=== PATIENT | female | born 1995 | race Caucasian/White ===

== ENCOUNTER 2017-10-14 14:45 | Inpatient (IN) ==
[2017-10-14 15:23] LABS: Basophils # 0.1 K/mcL (0.0-0.2); Basophils % 0.4 %; Eosinophils # 0.4 K/mcL (0.0-0.6); Eosinophils % 3.1 %; Hemoglobin 11.4 g/dL (11.5-15.4); Immature Granulocytes % 0.5 % (0-4); Mean Corpuscular HGB Conc 33.5 g/dL (31.6-35.5); Mean Corpuscular Hemoglobin 29.2 pg (28.0-33.3); Mean Corpuscular Volume 87.2 fL (83.0-100.0); Mean Platelet Volume 13.8 fL (9.4-12.4); Monocytes # 1.4 K/mcL (0.0-1.3); Monocytes % 12.2 %; Neutrophils # 7.8 K/mcL (1.6-8.9); Platelet Count 176 K/mcL (140-400); Red Cell Distribution Width 13.2 % (11.5-14.5); Segmented Neutrophils % 66.8 %
[2017-10-14 15:34] LABS: Amphetamine Screen,Urine Negative ng/mL (Cutoff=1000); Barbiturate Screen,Urine Negative ng/mL (Cutoff=200); Benzodiazepines Screen,Urine Negative ng/mL (Cutoff=200); Cannabinoid Screen,Urine Negative ng/mL (Cutoff = 50); Cocaine Screen,Urine Negative ng/mL (Cutoff= 300); Opiate Screen,Urine Negative ng/mL (Cutoff=300); Phencyclidine Screen,Urine Negative ng/mL (Cutoff=25); Protein/Creatinine Ratio,Urine 0.93 mg/mg (0.00-0.20)
[2017-10-14 15:42] LABS: Alanine Aminotransferase 7 Units/L (7-52); Aspartate Amino Transferase 17 Units/L (13-39); BUN/Creatinine Ratio 15 (6-26); Blood Urea Nitrogen 10 mg/dL (6-20); Lactate Dehydrogenase 221 Units/L (140-271); Uric Acid 6.4 mg/dL (2.3-7.6); eGFR For Non-African Americans > 60 (> 60)
[2017-10-14] MEDS ORDERED: *HR* HYDROmorphone (PF) 1 MG/ML SYRINGE IVP PRN (17:10)
[2017-10-14] MEDS ORDERED: *HR* Promethazine 25 MG/ML VIAL IVP PRN (17:10)
[2017-10-14] MEDS ORDERED: Acetaminophen IV 1,000 MG/100 ML INFUS..BTL IVPB ONE (17:10)
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
[2017-10-14] MEDS ORDERED: CeFAZolin Premix DUPLEX 2,000 MG/50 ML BAG IVPB ONE (17:26)
[2017-10-14] MEDS ORDERED: Metoclopramide 10 MG/2 ML VIAL IVP ONE (17:26)
[2017-10-14] MEDS ORDERED: Famotidine 20 MG/2 ML VIAL IVP ONE (17:26)
[2017-10-14] MEDS ORDERED: Oxytocin 20 units/ LR 1000 mL 20 UNIT/1,000 ML BAG IVC ONE ×2 (17:26→22:09)
[2017-10-14] MEDS ORDERED: Ringers Solution, Lactated 1,000 ML IVC ONE (17:26)
[2017-10-14] MEDS ORDERED: MetroNIDAZOLE 500 MG/100 ML 500 MG/100 ML BAG IVPB ONE (17:28)
[2017-10-14] MEDS ORDERED: Ringers Solution, Lactated 1,000 ML ONE ×2 (17:29→18:54)
[2017-10-14] MEDS ORDERED: Ringers Solution, Lactated 1,000 ML IVC SCH (17:30)
[2017-10-14] MEDS ORDERED: *HR* Oxytocin 10 UNIT/ML VIAL IM ONE (18:53)
[2017-10-14] MEDS ORDERED: EPHEDrine 50 MG/ML VIAL ONE (18:53)
[2017-10-14] MEDS ORDERED: *HR* Morphine Sulfate/PF 10 MG/10 ML AMPUL ONE (18:57)
[2017-10-14] MEDS ORDERED: *HR* FentaNYL (PF) 100 MCG/2 ML VIAL ONE ×2 (18:57→20:57)
[2017-10-14] MEDS ORDERED: cefOXitin 2,000 MG in Water for inj. (sterile) 20 ML 20 ML IVP ONE ×2 (19:18→20:00)
--- NOTE | 2017-10-14 19:31 | History & Physical Report ---
Date of Encounter: 10/14/17 Time of Encounter: 19:29 24 Hour HP Update - Instructions Instructions: If the History and Physical is less than 30 days old and was completed prior to A.M. admission and or procedure and has NOT been updated on calendar day of procedure please complete this update prior to performing procedure. - Update Patient reports changes in Medical Condition: Yes Changes in examination, assessment, or condition: No Changes in Medication: No Preop tests/diagnostics Reviewed: Yes Surgery Remains Indicated: Yes Consent for Planned Operative Procedure(s) Verified: Yes Review of Patient reveals the following changes:: Preeclampsia by labor and delivery evaluation with elevated protein creatinine ratio. Patient had questionable rupture of membranes. Speculum exam revealed no pooling. Cervical exam was 2/70/-1, breech presenting - Pre-Operative Checklist Preoperative Checklist Indicated: Yes Prophylactic Antibiotic Ordered: Yes Home Medications Include Beta Jovani: No Beta Jovani Taken Today (Day of Surgery): No Beta Jovani Taken Yesterday (Day Prior to Surgery): No Is VTE Prophylaxis Indicated?: Yes
[2017-10-14] MEDS ORDERED: Lidocaine -MPF 2% 5 ML VIAL ONE ×2 (20:07→21:29)
[2017-10-14] MEDS ORDERED: Propofol 500 MG/50 ML INFUS..BTL ONE (20:43)
[2017-10-14] MEDS ORDERED: *HR* Midazolam HCl 2 MG/2 ML VIAL ONE (20:58)
--- NOTE | 2017-10-14 22:00 | OB/GYN Procedure Note ---
Section - Date of procedure: 10/14/17 Preop diagnosis: breech, other (Twins, preeclampsia) Post-op diagnosis: same Procedure: section, primary low transverse Surgeon: Fanny Acharya Blood Loss: 600 Was there an administrative assistant data entry present: No Tire Builder Heavy Service: Dennis Randolph Anesthesia Type: General (Failed spinal) section complications: uterine atony Disposition: L&D Recovery Room Specimens: Placenta, Cord segment - (s) Infant A Infant Delivery Date: 10/14/17 Delivery Time: 20:52 Presentation: asif breech Route of delivery: other Gender: Female Viability: Viable Pounds: 5 Ounces: 10 at 1 minute: 7 at 5 minutes: 9 Placenta: spontaneous Cord: nuchal cord, 3 umbilical vessels, nuchal reduced Infant B Delivery Date: 10/14/17 Delivery Time: 20:53 Presentation: vertex (Converted from transverse) Route of delivery: other Gender: Male Viability: Viable Pounds: 5 Ounces: 2 at 1 minute: 7 at 5 minutes: 8 Placenta: spontaneous Cord: nuchal cord, 3 umbilical vessels, nuchal reduced - Narrative Narrative: The patient was taken to the operating room and given spinal anesthesia. Timeout was completed after the patient was prepped and draped. Anesthesia was tested with Allis clamps and confirmed. A Pfannenstiel skin incision was then made with the scalpel. The patient then reported discomfort with the incision. The case was then halted for another 15 minutes for a total of 28 minutes in which the patient did not achieve adequate anesthesia and she was given a general anesthesia. The incision was then extended laterally and sharply dissected down to the fascia. The fascia was then incised in the midline and extended bluntly and sharply bilaterally. 2 straight [place] clamps are placed on the inferior fascial edge and the fascia was bluntly and sharply dissected away from rectus muscles, this was repeated superiorly. The rectus muscles were bluntly and sharply bissected. Peritoneum was bluntly entered and extended bluntly superiorly and inferiorly. A bladder blade was placed to protect the bladder. The Vesicouterine peritoneum was incised with Metzenbaum scissors and extended laterally then the bladder flap was reflected inferiorly and the bladder blade was replaced to protect the bladder. A low transverse incision was then made in the lower uterine segment down to the amnion. This was then bluntly extended laterally. The amnion was then bluntly entered with an Allis clamp, clear fluid was seen, and the , baby A, was delivered in asif breech presentation. The was suctioned on the operating field. After cord clamping, the infant was handed to the nursery care team. A cord segment was obtained. Attention was then placed for baby B, which was in vertex presentation. The amnion was entered with an Allis clamp. Clear fluid was again seen. This was delivered in vertex presentation and suctioned on the operating field. The cord was clamped and cut and handed to finishing care team. A cord segment was obtained. Cord blood was obtained. This umbilical cord was doubly clamped with 2 umbilical plastic clamps. Three- vessel cord was confirmed. IV Pitocin was started. The placenta was delivered spontaneous and intact with trailing membranes. The uterine Cavity was digitally inspected and noted to be clear and then was wiped clean with a moist lap sponge. Tubes and ovaries were inspected and found to be grossly normal. There was uterine atony which responded to IV Pitocin and vigorous massage. The cervix was dilated with a ring forcep which was then discarded off the field. Ring clamps were placed on the edge of the uterine incision and the uterine incision was closed using 0 Vicryl suture in a running locking fashion. A second imbricating layer completed the uterine closure. Good hemostasis was achieved. The pelvic cavity was copiously irrigated with sterile water and good hemostasis was again noted. Peritoneal edges and rectus muscles were inspected and good hemostasis was achieved. The fascia was then closed using an 0 PDS loop in a running nonlocking fashion. Subcutaneous tissue was irrigated with sterile water good hemostasis was achieved. The skin was then closed with 4-0 Monocryl in a subcuticular fashion. Dermabond and mesh was used to reinforce the skin incision. Chery was noted to be draining clear yellow urine at the end of the procedure. All sponge and instrument counts were correct at the end of the procedure
--- NOTE | 2017-10-14 22:57 | Anesthesia Evaluation Post Op ---
Date of Encounter: 10/14/17 Time of Encounter: 22:56 - Vital Signs Vital Signs: vss - Lungs Lungs: Clear Ascult./Percussion - Airway Airway: Non-obstructed - Mental Status Mental Status: Alert & Oriented, Answers Appropriately - Pain Pain Scale used: Galvin-Diego (Faces) (tolerable) - Nausea Vomiting Nausea Vomiting: Not Present - Hydration Hydration: Chery catheter - Discharge PostOp Status: Transfer Patient to floor
[2017-10-15] MEDS: Oxytocin 20 units/ LR 1000 mL 20 UNIT/1,000 ML BAG IVC SCH ×2 (00:01→03:25)
[2017-10-15] MEDS ORDERED: Simethicone 80 MG TAB.CHEW PO PRN (00:44)
[2017-10-15] MEDS ORDERED: OXYCODONE Oral CONC 10 MG/0.5 ML ORAL.SYG SL PRN (00:44)
[2017-10-15] MEDS ORDERED: Ondansetron 4 MG/2 ML VIAL IVP PRN (00:44)
[2017-10-15] MEDS ORDERED: Sennosides 8.6 MG TABLET PO PRN (00:44)
[2017-10-15] MEDS: Ibuprofen 600 MG TABLET PO SCH ×4 (03:24→21:27)
[2017-10-15] MEDS ORDERED: Acetaminophen IV 1,000 MG/100 ML INFUS..BTL IVPB ONE ×2 (06:00→15:00)
[2017-10-15] MEDS ORDERED: *HR* Nalbuphine 10 MG/ML AMPUL IV PRN (06:54)
[2017-10-15] MEDS: Prenatal Vit/FA 1 EACH TABLET PO SCH (08:48)
--- NOTE | 2017-10-15 09:54 | OB/GYN Progress Note ---
Date of Encounter: 10/15/17 Time of Encounter: 09:52 - Assessment and Plan (1) Status post Current Visit: Yes Status: Acute Patient doing well after Obtain PIH labs Continue current management plan. Anticipate discharge home tomorrow (2) Twin delivery by Current Visit: Yes Status: Acute Subjective - Subjective Principal diagnosis: Interval history: Patient reports doing well after for twin gestation. States that both neonates are latching well. Reports being able to eat, has not passed gas yet. Pateint had byrnes catheter removed this morning and has no urinated on her own yet. Reports no nausea or vomiting, no drainage from incision site. Reports that swelling in her lower extremities from yesterday has improved significantly. Denies any headaches, blurry vision, fever. Patient reports: appetite normal, pain well controlled, no nauseated [place]: doing well Objective - Vital Signs Latest vital signs: Vital Signs Temp Pulse Resp BP Pulse Ox 10/15/17 03:30 97.9 F 69 16 132/84 97 10/15/17 02:30 98.0 F 68 16 130/81 97 10/15/17 01:30 98.5 F 72 16 137/68 97 10/15/17 01:00 98.1 F 78 16 117/69 96 10/15/17 00:30 98.6 F 79 16 129/76 97 Intake and Output 10/14/17 10/15/17 10/15/17 23:59 07:59 15:59 Intake Total 1000 / 1000 500 / 500 Output Total 600 / 600 1100 / 1100 1200 / 1200 Balance -600 / -600 -100 / -100 -700 / -700 Intake: IV Fluids 1000 / 1000 Pitocin 20 unit In 1,000 ml @ 1000 / 1000 125 mls/hr IVC .Q8H MARIO Rx#: [id number] Free Water 500 / 500 Output: Estimated Blood Loss 600 / 600 Catheter 1100 / 1100 1200 / 1200 Other: Stool Characteristics Normal for Patient Weight 75.75 kg 71.2 kg Patient Weight 10/15/17 23:59 Weight 71.2 kg - Exam Lungs: bilateral: normal Chest: Normal S1, Normal S2 Extremities: Present: normal. Absent: edema Abdomen: Present: soft Incision: Present: dressed Uterus: Present: firm. Absent: tenderness - Labs Labs: Laboratory Results - last 24 hr 10/14/17 10/14/17 10/14/17 15:10 15:10 15:10 WBC 11.8 H RBC 3.90 Hgb 11.4 L Hct 34.0 L MCV 87.2 MCH 29.2 MCHC 33.5 RDW 13.2 Plt Count 176 MPV 13.8 H Immature Gran % 0.5 Seg Neutrophils % 66.8 Lymphocytes % 17.0 Monocytes % 12.2 Eosinophils % 3.1 Basophils % 0.4 Neutrophils # 7.8 Lymphocytes # 2.0 Monocytes # 1.4 H Eosinophils # 0.4 Basophils # 0.1 BUN Creatinine Est GFR ( Amer) Est GFR (Non-Af Amer) BUN/Creatinine Ratio Uric Acid AST ALT Lactate Dehydrogenase Urine Creatinine 193 Protein/Creatinin Ratio 0.93 H Urine Total Protein 179 H Urine Opiates Screen Negative Ur Barbiturates Screen Negative Ur Phencyclidine Scrn Negative Ur Amphetamines Screen Negative U Benzodiazepines Scrn Negative Urine Cocaine Screen Negative U Marijuana (THC) Screen Negative Ur Drug Screen Interp See Below 10/14/17 15:10 WBC RBC Hgb Hct MCV MCH MCHC RDW Plt Count MPV Immature Gran % Seg Neutrophils % Lymphocytes % Monocytes % Eosinophils % Basophils % Neutrophils # Lymphocytes # Monocytes # Eosinophils # Basophils # BUN 10 Creatinine 0.68 Est GFR ( Amer) > 60 Est GFR (Non-Af Amer) > 60 BUN/Creatinine Ratio 15 Uric Acid 6.4 AST 17 ALT 7 Lactate Dehydrogenase 221 Urine Creatinine Protein/Creatinin Ratio Urine Total Protein Urine Opiates Screen Ur Barbiturates Screen Ur Phencyclidine Scrn Ur Amphetamines Screen U Benzodiazepines Scrn Urine Cocaine Screen U Marijuana (THC) Screen Ur Drug Screen Interp
[2017-10-15 10:30] LABS: Basophils % 0.2 %; Eosinophils % 0.1 %; Hematocrit 28.6 % (35.3-44.9); Immature Granulocytes % 0.6 % (0-4); Lymphocytes # 1.4 K/mcL (0.6-4.6); Lymphocytes % 7.8 %; Mean Corpuscular HGB Conc 32.9 g/dL (31.6-35.5); Mean Corpuscular Hemoglobin 29.2 pg (28.0-33.3); Mean Corpuscular Volume 88.8 fL (83.0-100.0); Mean Platelet Volume 14.1 fL (9.4-12.4); Monocytes # 2.5 K/mcL (0.0-1.3); Monocytes % 14.1 %; Neutrophils # 13.5 K/mcL (1.6-8.9); Platelet Count 135 K/mcL (140-400); Red Blood Count 3.22 M/mcL (3.82-4.97); Red Cell Distribution Width 12.8 % (11.5-14.5); Segmented Neutrophils % 77.2 %
[2017-10-15 10:33] LABS: Hemoglobin 9.4 g/dL (11.5-15.4)
[2017-10-15 10:45] LABS: Alanine Aminotransferase 10 Units/L (7-52); Aspartate Amino Transferase 37 Units/L (13-39); BUN/Creatinine Ratio 12 (6-26); Blood Urea Nitrogen 9 mg/dL (6-20); Lactate Dehydrogenase 250 Units/L (140-271); Uric Acid 5.9 mg/dL (2.3-7.6); eGFR For Non-African Americans > 60 (> 60)
[2017-10-15] MEDS: *HR* OxyCODONE/APAP 5/325 TABLET PO PRN ×2 (17:09→21:27)
[2017-10-16] MEDS: *HR* OxyCODONE/APAP 5/325 TABLET PO PRN ×5 (02:10→23:11)
[2017-10-16] MEDS: Ibuprofen 600 MG TABLET PO SCH ×3 (06:06→23:10)
[2017-10-16 06:55] LABS: Basophils # 0.1 K/mcL (0.0-0.2); Basophils % 0.4 %; Eosinophils # 0.3 K/mcL (0.0-0.6); Eosinophils % 2.1 %; Hematocrit 30.9 % (35.3-44.9); Hemoglobin 10.1 g/dL (11.5-15.4); Immature Granulocytes % 0.6 % (0-4); Lymphocytes # 2.5 K/mcL (0.6-4.6); Lymphocytes % 15.3 %; Mean Corpuscular HGB Conc 32.7 g/dL (31.6-35.5); Mean Corpuscular Hemoglobin 29.1 pg (28.0-33.3); Mean Platelet Volume 13.8 fL (9.4-12.4); Monocytes # 1.8 K/mcL (0.0-1.3); Monocytes % 11.3 %; Neutrophils # 11.3 K/mcL (1.6-8.9); Platelet Count 146 K/mcL (140-400); Red Blood Count 3.47 M/mcL (3.82-4.97); Red Cell Distribution Width 13.2 % (11.5-14.5); Segmented Neutrophils % 70.3 %
[2017-10-16 07:11] LABS: Alanine Aminotransferase 11 Units/L (7-52); Aspartate Amino Transferase 31 Units/L (13-39); BUN/Creatinine Ratio 15 (6-26); Blood Urea Nitrogen 10 mg/dL (6-20); Lactate Dehydrogenase 243 Units/L (140-271); Uric Acid 5.6 mg/dL (2.3-7.6); eGFR For Non-African Americans > 60 (> 60)
[2017-10-16] MEDS: Prenatal Vit/FA 1 EACH TABLET PO SCH (09:37)
[2017-10-16] MEDS ORDERED: Lanolin 28 GM TUBE TP PRN (10:13)
--- NOTE | 2017-10-16 10:15 | OB/GYN Progress Note ---
Date of Encounter: 10/16/17 Time of Encounter: 10:08 - Assessment and Plan (1) Status post Current Visit: Yes Status: Acute Continue routine postop care Anticipate discharge home tomorrow. Subjective - Subjective Principal diagnosis: S/P Primary Delivery & Pre-Eclampsia Interval history: S/P Primary C/S for Pre-Eclampsia Day 2. Pain is well controlled. Lochia is light and without clots VSS - borderline blood pressure elevation. Will continue to monitor; consider labetalol after next BP check if still elevated Labs results reviewed - improved Tolerating regular diet; voiding without difficulty and passing flatus Breast feeding Anticipate discharge home tomorrow. Patient reports: appetite normal, voiding normally, pain well controlled, ambulating normally [place]: doing well, nursing well, bottle feeding Objective - Vital Signs Latest vital signs: Vital Signs Temp Pulse Resp BP Pulse Ox 10/16/17 07:59 98.3 F 87 16 151/99 10/16/17 06:55 136/91 10/16/17 06:15 98.3 F 80 16 152/98 98 10/15/17 21:30 98.3 F 74 14 139/88 99 10/15/17 16:30 98.5 F 83 14 143/87 98 10/15/17 12:44 97.9 F 74 14 134/85 98 Intake and Output 10/15/17 10/16/17 10/16/17 23:59 07:59 15:59 Intake Total 600 / 600 500 / 500 120 / 120 Output Total 1350 / 1350 1700 / 1700 Balance -750 / -750 -1200 / -1200 120 / 120 Intake: IV Fluids 100 / 100 Ofirmev 1,000 mg/100 ml 1,000 100 / 100 mg In 100 ml @ 400 mls/hr IVPB ONCE ONE Rx#:[id number] Oral 500 / 500 500 / 500 120 / 120 Output: Urine 1350 / 1350 1700 / 1700 Other: Meal Breakfast Percent of Meal Consumed 100% Stool Characteristics Normal for Patient - Exam Lungs: bilateral: normal Chest: Normal S1, Normal S2 Extremities: Present: normal, edema (2+) Abdomen: Present: normal appearance, soft. Absent: gravid, tenderness Incision: Present: normal, dry, intact (C/D/I) Uterus: Present: normal, firm Fundal Height: 0 (@U) - Labs Labs: Laboratory Results - last 24 hr 10/15/17 10/15/17 10/16/17 10:03 10:03 06:26 WBC 17.5 H 16.1 H RBC 3.22 L 3.47 L Hgb 9.4 L D 10.1 L Hct 28.6 L 30.9 L MCV 88.8 89.0 MCH 29.2 29.1 MCHC 32.9 32.7 RDW 12.8 13.2 Plt Count 135 L 146 MPV 14.1 H 13.8 H Immature Gran % 0.6 0.6 Seg Neutrophils % 77.2 70.3 Lymphocytes % 7.8 15.3 Monocytes % 14.1 11.3 Eosinophils % 0.1 2.1 Basophils % 0.2 0.4 Neutrophils # 13.5 H 11.3 H Lymphocytes # 1.4 2.5 Monocytes # 2.5 H 1.8 H Eosinophils # 0.0 0.3 Basophils # 0.0 0.1 BUN 9 Creatinine 0.74 Est GFR ( Amer) > 60 Est GFR (Non-Af Amer) > 60 BUN/Creatinine Ratio 12 Uric Acid 5.9 AST 37 ALT 10 Lactate Dehydrogenase 250 10/16/17 06:26 WBC RBC Hgb Hct MCV MCH MCHC RDW Plt Count MPV Immature Gran % Seg Neutrophils % Lymphocytes % Monocytes % Eosinophils % Basophils % Neutrophils # Lymphocytes # Monocytes # Eosinophils # Basophils # BUN 10 Creatinine 0.66 Est GFR ( Amer) > 60 Est GFR (Non-Af Amer) > 60 BUN/Creatinine Ratio 15 Uric Acid 5.6 AST 31 ALT 11 Lactate Dehydrogenase 243
[2017-10-16] MEDS ORDERED: Ondansetron ODT 4 MG TAB.RAPDIS SL PRN (18:03)
[2017-10-17] MEDS: Ibuprofen 600 MG TABLET PO SCH ×2 (07:08→12:41)
[2017-10-17 07:56] VITALS: BP 140/97
[2017-10-17] MEDS: Prenatal Vit/FA 1 EACH TABLET PO SCH (08:42)
[2017-10-17] MEDS ORDERED: NIFEdipine XL (24 HR) 30 MG TAB.ER.24 PO SCH (09:15)
--- NOTE | 2017-10-17 09:36 | Discharge Summary ---
Date of Encounter: 10/17/17 Time of Encounter: 09:34 - Discharge Diagnosis (1) Status post primary low transverse section Priority: Primary Status: Acute Comments: Feeling well Pain well controlled with by mouth pain meds Tolerating regular diet Ambulating independently Lochia light Voiding independently Passing flatus, no BM yet Vital signs stable, blood pressure remains elevated Discharge home today (2) Pre-eclampsia, Priority: Secondary Status: Acute Comments: Continue labetalol 200 mg twice a day Initiate Procardia XL 30 mg daily (3) Breast feeding status of mother Priority: Secondary Status: Acute Comments: Community resources provided - Discharge Medications Prescriptions: OxyCODONE/APAP 5/325 [Percocet 5/325 MG] 1 each PO Q4HR PRN 5 Days #30 tablet PRN Reason: Moderate pain 4-6 Ibuprofen [Motrin] 600 mg PO Q6HR #30 tablet Docusate [Colace] 100 mg PO BID #30 capsule Labetalol [Trandate] 200 mg PO BID #60 tablet NIFEdipine XL (24 HR) [Procardia XL] 30 mg PO DAILY #30 tab.er.24 Home Medications: Aspirin [Lo-Dose Aspirin EC] 81 mg PO DAILY 10/14/17 [History] Folic Acid 1 mg PO DAILY 10/14/17 [History] Pnv,Calcium 72/Iron/Folic Acid [ Plus Tablet] 1 each PO DAILY 10/14/17 [ History] Ranitidine HCl [Acid Wholesale Representative] 150 mg PO BID PRN 10/14/17 [History] Docusate [Colace] 100 mg PO BID #30 capsule 10/17/17 [Rx] Ibuprofen [Motrin] 600 mg PO Q6HR #30 tablet 10/17/17 [Rx] Labetalol [Trandate] 200 mg PO BID #60 tablet 10/17/17 [Rx] Lanolin 1 appl TP Q4HR PRN tube 10/17/17 [Rx] NIFEdipine XL (24 HR) [Procardia XL] 30 mg PO DAILY #30 tab.er.24 10/17/17 [Rx] OxyCODONE/APAP 5/325 [Percocet 5/325 MG] 1 each PO Q4HR PRN 5 Days #30 tablet [Rx] Allergies/Adverse Reactions: 3 Allergy/AdvReac Type Severity Reaction Status Date / Time No Known Allergies Allergy Verified 10/14/17 19:20 Data Procedures and tests throughout hospitalization: Laboratory Tests 10/14/17 10/14/17 10/14/17 15:10 15:10 15:10 WBC 11.8 H RBC 3.90 Hgb 11.4 L Hct 34.0 L MCV 87.2 MCH 29.2 MCHC 33.5 RDW 13.2 Plt Count 176 MPV 13.8 H Immature Gran % 0.5 Seg Neutrophils % 66.8 Lymphocytes % 17.0 Monocytes % 12.2 Eosinophils % 3.1 Basophils % 0.4 Neutrophils # 7.8 Lymphocytes # 2.0 Monocytes # 1.4 H Eosinophils # 0.4 Basophils # 0.1 BUN Creatinine Est GFR ( Amer) Est GFR (Non-Af Amer) BUN/Creatinine Ratio Uric Acid AST ALT Lactate Dehydrogenase Urine Creatinine 193 Protein/Creatinin Ratio 0.93 H Urine Total Protein 179 H Urine Opiates Screen Negative Ur Barbiturates Screen Negative Ur Phencyclidine Scrn Negative Ur Amphetamines Screen Negative U Benzodiazepines Scrn Negative Urine Cocaine Screen Negative U Marijuana (THC) Screen Negative Ur Drug Screen Interp See Below 10/14/17 10/15/17 10/15/17 15:10 10:03 10:03 WBC 17.5 H RBC 3.22 L Hgb 9.4 L D Hct 28.6 L MCV 88.8 MCH 29.2 MCHC 32.9 RDW 12.8 Plt Count 135 L MPV 14.1 H Immature Gran % 0.6 Seg Neutrophils % 77.2 Lymphocytes % 7.8 Monocytes % 14.1 Eosinophils % 0.1 Basophils % 0.2 Neutrophils # 13.5 H Lymphocytes # 1.4 Monocytes # 2.5 H Eosinophils # 0.0 Basophils # 0.0 BUN 10 9 Creatinine 0.68 0.74 Est GFR ( Amer) > 60 > 60 Est GFR (Non-Af Amer) > 60 > 60 BUN/Creatinine Ratio 15 12 Uric Acid 6.4 5.9 AST 17 37 ALT 7 10 Lactate Dehydrogenase 221 250 Urine Creatinine Protein/Creatinin Ratio Urine Total Protein Urine Opiates Screen Ur Barbiturates Screen Ur Phencyclidine Scrn Ur Amphetamines Screen U Benzodiazepines Scrn Urine Cocaine Screen U Marijuana (THC) Screen Ur Drug Screen Interp 10/16/17 10/16/17 06:26 06:26 WBC 16.1 H RBC 3.47 L Hgb 10.1 L Hct 30.9 L MCV 89.0 MCH 29.1 MCHC 32.7 RDW 13.2 Plt Count 146 MPV 13.8 H Immature Gran % 0.6 Seg Neutrophils % 70.3 Lymphocytes % 15.3 Monocytes % 11.3 Eosinophils % 2.1 Basophils % 0.4 Neutrophils # 11.3 H Lymphocytes # 2.5 Monocytes # 1.8 H Eosinophils # 0.3 Basophils # 0.1 BUN 10 Creatinine 0.66 Est GFR ( Amer) > 60 Est GFR (Non-Af Amer) > 60 BUN/Creatinine Ratio 15 Uric Acid 5.6 AST 31 ALT 11 Lactate Dehydrogenase 243 Urine Creatinine Protein/Creatinin Ratio Urine Total Protein Urine Opiates Screen Ur Barbiturates Screen Ur Phencyclidine Scrn Ur Amphetamines Screen U Benzodiazepines Scrn Urine Cocaine Screen U Marijuana (THC) Screen Ur Drug Screen Interp Date of admission: 10/14/17 18:19 Primary care physician: PCP NONE Discharging clinician: Heidi Kennedy Anticipated date of discharge: 10/17/17 - Patient Status Disposition: Home, Self-Care Condition: Good Functional capacity at discharge: independent ambulation Overall status at discharge: patient is progressing back to baseline - Discharge Instructions Follow Up With: NONE,PCP [Primary Care Provider] - Fanny Mendez MD [Partnered Physician] - - Diet and Activity Activity: increase activity as tolerated Diet: regular diet Hospital Course Procedures: PLTCS Reason for admission: section, IUP at term Delivery: section Episiotomy: none Laceration: none Other procedures: none complications: none Discharge diagnosis: IUP at term delivered baby: twins Time Attestation: Total time spent providing and/or coordinating discharge services: Time Spent: Less than 30 minutes - VTE Reasons for not Prescribing Prophylaxis: Treatment not Indicated - Low risk for VTE Documentation of Mechanical Device: Intermittent pneumatic compression device Exam - Constitutional Vitals: Temp Pulse Resp BP Pulse Ox 98.4 F 81 14 140/97 99 10/17/17 07:51 10/17/17 07:51 10/17/17 07:51 10/17/17 07:51 10/17/17 07:51 General appearance IM: A&O X 3 - Respiratory Respiratory exam: Present: CTAB - Cardiovascular Cardiovascular exam IM: Present: RRR, +S1, +S2 - GI/Abdominal GI/Abdominal exam IM: normal bowel sounds, no peritoneal signs Incision: normal, dry, intact - Rectal Rectal exam: deferred - Uterine Tone: Firm Uterus Position: At Umbilicus, Midline - Extremities Exam Extremities exam IM: Present: normal capillary refill, normal inspection, radial pulses palpable and symmetrical - Neurological Exam Neurological exam: alert, CN II-XII intact, normal gait, oriented X3, reflexes normal, no focal deficits, strengths equal and symetr throughout - Psychiatric Additional comments: Patient denies history of depression and anxiety. Signs and symptoms of depression discussed with patient and partner and both verbalize understanding of when to seek help. - Other Additional findings: Breasts: Soft, nontender; nipples intact without erythema
== END 2017-10-17 12:30 | disposition home or self-care (01) | DRG 765 ==
LOC: 1NENULAB → 1NENUOBS 10-15 00:10
PROVIDERS: ADMIT Obstetrics & Gynecology; ATTEND Obstetrics & Gynecology